=== PATIENT | female | born 1975 | race Caucasian/White ===

== ENCOUNTER 2021-06-18 16:15 | Observation (INO) ==
[2021-06-18] MEDS ORDERED: 0.9 % Sodium Chloride 1,000 ML IVC ONE (16:31)
[2021-06-18 17:00] LABS: Basophils # 0.1 K/mcL (0.0-0.2); Basophils % 0.2 %; Eosinophils % 0.2 %; Hematocrit 40.4 % (35.3-44.9); Hemoglobin 13.2 g/dL (11.5-15.4); Immature Granulocytes % 0.6 % (0-4); Lymphocytes # 1.2 K/mcL (0.6-4.6); Lymphocytes % 5.5 %; Mean Corpuscular HGB Conc 32.7 g/dL (31.6-35.5); Mean Corpuscular Hemoglobin 32.8 pg (28.0-33.3); Mean Corpuscular Volume 100.2 fL (83.0-100.0); Mean Platelet Volume 9.7 fL (9.4-12.4); Monocytes # 0.8 K/mcL (0.0-1.3); Monocytes % 3.4 %; Neutrophils # 19.9 K/mcL (1.6-8.9); Platelet Count 208 K/mcL (140-400); Red Blood Count 4.03 M/mcL (3.82-4.97); Red Cell Distribution Width 14.8 % (11.5-14.5); Segmented Neutrophils % 90.1 %; White Blood Count 22.1 K/mcL (4.3-11.1)
[2021-06-18 17:20] LABS: Acetaminophen < 10 mcg/mL (10-20); Alanine Aminotransferase 8 Units/L (7-52); Albumin 4.5 g/dL (3.5-5.7); Albumin/Globulin Ratio 1.7 (1.1-2.2); Alkaline Phosphatase 69 Units/L (34-104); Aspartate Amino Transferase 19 Units/L (13-39); BUN/Creatinine Ratio 14 (6-26); Bilirubin,Indirect 0.3 mg/dL (0.0-1.0); Bilirubin,Total 0.3 mg/dL (0.3-1.0); Blood Urea Nitrogen 18 mg/dL (6-20); Calcium 9.2 mg/dL (8.6-10.3); Carbon Dioxide 27 mEq/L (23-29); Chloride 106 mEq/L (98-107); Ethanol < 10 mg/dL (Less than 10); Globulin 2.6 g/dL (2.4-3.5); Glucose 141 mg/dL (70-105); Osmolality,Calculated 294 (280-300); Potassium 4.3 mEq/L (3.5-5.1); Salicylate < 2.5 mg/dL (15.0-30.0); Sodium 140 mEq/L (136-145); Total Protein 7.1 g/dL (6.4-8.9); eGFR For African Americans 53 (> 60); eGFR For Non-African Americans 44 (> 60)
[2021-06-18 18:27] LABS: Bacteria,Urine Few per hpf (None-Few); Bilirubin,Urine Negative (Negative); Blood,Urine Negative (Negative); Clarity,Urine Clear (Clear); Color,Urine Light-Yellow (Yellow); Glucose,Urine (UA) 300 mg/dL (Normal); Ketones,Urine Negative (Negative); Leukocyte Esterase,Urine Negative (Negative); Nitrite,Urine Negative (Negative); Protein,Urine Negative (Neg-Trace); Specific Gravity,Urine 1.021 (1.010-1.025); Squamous Epithelial Cell,Urine Few per hpf (None-Few); Urobilinogen,Urine Normal (Normal)
[2021-06-18 18:44] LABS: Amphetamine Screen,Urine Negative ng/mL (Cutoff=1000); Barbiturate Screen,Urine Negative ng/mL (Cutoff=200); Benzodiazepines Screen,Urine Positive ng/mL (Cutoff=200); Cannabinoid Screen,Urine Positive ng/mL (Cutoff = 50); Cocaine Screen,Urine Negative ng/mL (Cutoff= 300); Opiate Screen,Urine Positive ng/mL (Cutoff=300); Phencyclidine Screen,Urine Negative ng/mL (Cutoff=25)
[2021-06-18] MEDS ORDERED: Isovue-370 500 ML BOTTLE IVP ONE (18:48)
[2021-06-18] MEDS ORDERED: Azithromycin 500 MG in 0.9 % Sodium Chloride 250 ML IVPB ONE (23:30)
[2021-06-18 23:55] LABS: ABG Base Excess -1 mEq/L (-2 to 3); ABG HCO3 24 mEq/L (21-27); ABG Oxygen Saturation 80 % (95-98); ABG PCO2 39 mmHg (35-45); ABG PO2 44 mmHg (85-104); ABG TCO2 25 mEq/L (20-26)
[2021-06-19 00:04] LABS: ABG Base Excess 0 mEq/L (-2 to 3); ABG HCO3 24 mEq/L (21-27); ABG Oxygen Saturation 80 % (95-98); ABG PCO2 38 mmHg (35-45); ABG PH 7.41 pH Units (7.32-7.45); ABG PO2 44 mmHg (85-104); ABG TCO2 25 mEq/L (20-26)
[2021-06-19 00:19] LABS: Influenza A PCR Negative (Negative); Influenza B PCR Negative (Negative); Resp. Syncytial Virus PCR Negative (Negative); SARS-CoV-2 by PCR (In House) Negative (Negative)
[2021-06-19] MEDS ORDERED: *HR* HYDROcodone/Acet 5/325 mg TABLET PO PRN (00:29)
[2021-06-19] MEDS ORDERED: Acetaminophen 325 MG TABLET PO PRN (00:29)
[2021-06-19] MEDS ORDERED: Ondansetron 4 MG/2 ML VIAL IVP PRN (00:29)
[2021-06-19] MEDS ORDERED: Melatonin 3 MG TABLET PO PRN (00:29)
[2021-06-19] MEDS ORDERED: Naloxone 0.4 MG/ML INJ IVP PRN (00:29)
[2021-06-19] MEDS ORDERED: Nicotine 2 MG GUM BC PRN (01:46)
[2021-06-19] MEDS: 0.9 % Sodium Chloride 1,000 ML IVC SCH ×2 (02:23→17:18)
[2021-06-19] MEDS ORDERED: Dextrose Gel 15 GM/37.5 ML TUBE PO PRN ×2 (02:32)
[2021-06-19] MEDS ORDERED: D5% in Water 1,000 ML IVC PRN (02:32)
[2021-06-19] MEDS ORDERED: *HR* Dextrose 50 % in Water (Syg) 50 ML SYRINGE IVP PRN (02:32)
[2021-06-19] MEDS: Ampicillin/Sulbactam 3,000 MG in 0.9 % Sodium Chloride Mini Bag 100 ML IVPB SCH ×4 (02:46→21:06)
[2021-06-19 03:07] LABS: Basophils % 0.3 %; Eosinophils % 0.2 %; Hematocrit 33.6 % (35.3-44.9); Immature Granulocytes % 0.3 % (0-4); Lymphocytes # 1.7 K/mcL (0.6-4.6); Lymphocytes % 12.5 %; Mean Corpuscular HGB Conc 32.7 g/dL (31.6-35.5); Mean Corpuscular Hemoglobin 32.5 pg (28.0-33.3); Mean Corpuscular Volume 99.4 fL (83.0-100.0); Mean Platelet Volume 9.7 fL (9.4-12.4); Monocytes # 0.7 K/mcL (0.0-1.3); Monocytes % 5.1 %; Neutrophils # 10.8 K/mcL (1.6-8.9); Platelet Count 179 K/mcL (140-400); Red Blood Count 3.38 M/mcL (3.82-4.97); Red Cell Distribution Width 14.6 % (11.5-14.5); Segmented Neutrophils % 81.6 %; White Blood Count 13.2 K/mcL (4.3-11.1)
[2021-06-19 03:14] LABS: INR 1.1; Prothrombin Time 12.6 Seconds (9.4-12.1)
[2021-06-19] MEDS: *HR* OxyCODONE/APAP 5/325 TABLET PO PRN ×3 (03:15→17:15)
[2021-06-19 03:25] LABS: Alanine Aminotransferase 7 Units/L (7-52); Albumin 3.8 g/dL (3.5-5.7); Albumin/Globulin Ratio 1.6 (1.1-2.2); Alkaline Phosphatase 54 Units/L (34-104); Aspartate Amino Transferase 16 Units/L (13-39); BUN/Creatinine Ratio 18 (6-26); Bilirubin,Total 0.6 mg/dL (0.3-1.0); Blood Urea Nitrogen 14 mg/dL (6-20); Calcium 8.5 mg/dL (8.6-10.3); Carbon Dioxide 24 mEq/L (23-29); Chloride 107 mEq/L (98-107); Globulin 2.4 g/dL (2.4-3.5); Glucose 98 mg/dL (70-105); Magnesium 1.7 mg/dL (1.6-2.6); Osmolality,Calculated 284 (280-300); Phosphorous 2.9 mg/dL (2.7-4.5); Potassium 3.9 mEq/L (3.5-5.1); Sodium 137 mEq/L (136-145); Total Protein 6.2 g/dL (6.4-8.9); eGFR For African Americans > 60 (> 60); eGFR For Non-African Americans > 60 (> 60)
[2021-06-19] MEDS: Ipratropium/Albuterol Neb 3 ML IH SCH ×4 (03:25→20:12)
[2021-06-19] MEDS: Budesonide/Formoterol 80/4.5 1 PUFF INH IH SCH ×2 (08:09→20:12)
[2021-06-19] MEDS: Lactobacillus 1 EACH CAP.SPRINK PO SCH ×2 (09:02→21:05)
[2021-06-19] MEDS: Chlorhexidine Rinse 15 ML MOUTHWASH MM SCH ×2 (09:03→21:05)
[2021-06-19] MEDS: Nicotine 14 MG PATCH.TD24 TD SCH (09:04)
[2021-06-20] MEDS: *HR* OxyCODONE/APAP 5/325 TABLET PO PRN ×2 (00:43→06:47)
[2021-06-20 01:05] LABS: Basophils # 0.1 K/mcL (0.0-0.2); Basophils % 0.7 %; Eosinophils # 0.2 K/mcL (0.0-0.6); Eosinophils % 2.6 %; Hematocrit 30.6 % (35.3-44.9); Immature Granulocytes % 0.1 % (0-4); Lymphocytes # 2.7 K/mcL (0.6-4.6); Lymphocytes % 37.8 %; Mean Corpuscular HGB Conc 32.7 g/dL (31.6-35.5); Mean Corpuscular Hemoglobin 32.5 pg (28.0-33.3); Mean Corpuscular Volume 99.4 fL (83.0-100.0); Mean Platelet Volume 9.9 fL (9.4-12.4); Monocytes # 0.5 K/mcL (0.0-1.3); Monocytes % 6.9 %; Neutrophils # 3.8 K/mcL (1.6-8.9); Platelet Count 154 K/mcL (140-400); Red Blood Count 3.08 M/mcL (3.82-4.97); Red Cell Distribution Width 14.6 % (11.5-14.5); Segmented Neutrophils % 51.9 %; White Blood Count 7.3 K/mcL (4.3-11.1)
[2021-06-20 01:19] LABS: % Iron Saturation 8 % (15-50); BUN/Creatinine Ratio 9 (6-26); Blood Urea Nitrogen 7 mg/dL (6-20); Calcium 8.8 mg/dL (8.6-10.3); Carbon Dioxide 26 mEq/L (23-29); Chloride 110 mEq/L (98-107); Glucose 112 mg/dL (70-105); Iron 22 mcg/dL (50-170); Magnesium 1.8 mg/dL (1.6-2.6); Osmolality,Calculated 291 (280-300); Phosphorous 2.9 mg/dL (2.7-4.5); Potassium 3.7 mEq/L (3.5-5.1); Sodium 141 mEq/L (136-145); Transferrin 205 mg/dL (203-362); eGFR For African Americans > 60 (> 60); eGFR For Non-African Americans > 60 (> 60)
[2021-06-20 01:37] LABS: Ferritin 52 ng/mL (10-120)
[2021-06-20 01:42] LABS: Folate 8.2 ng/mL (3.0-16.0)
[2021-06-20] MEDS: Ampicillin/Sulbactam 3,000 MG in 0.9 % Sodium Chloride Mini Bag 100 ML IVPB SCH ×2 (03:37→09:44)
[2021-06-20] MEDS: Ipratropium/Albuterol Neb 3 ML IH SCH ×2 (04:00→07:44)
[2021-06-20 07:07] VITALS: BP 135/83; TEMP 98.1
[2021-06-20 07:08] VITALS: PULSE 77
[2021-06-20] MEDS: Budesonide/Formoterol 80/4.5 1 PUFF INH IH SCH (07:44)
[2021-06-20] MEDS ORDERED: ALPRAZolam 0.5 MG TABLET PO PRN (07:55)
[2021-06-20] MEDS ORDERED: Cyanocobalamin (B-12) 1,000 MCG/ML VIAL SQ ONE (07:55)
[2021-06-20] MEDS ORDERED: Gabapentin 300 MG CAPSULE PO SCH (09:00)
[2021-06-20] MEDS ORDERED: Azithromycin 250 MG TABLET PO SCH (09:00)
[2021-06-20] MEDS: Chlorhexidine Rinse 15 ML MOUTHWASH MM SCH (09:46)
[2021-06-20] MEDS: Lactobacillus 1 EACH CAP.SPRINK PO SCH (09:47)
[2021-06-20] MEDS: Nicotine 14 MG PATCH.TD24 TD SCH (09:52)
[2021-06-20 13:44] VITALS: O2SAT 95
== END 2021-06-20 12:05 | disposition home or self-care (01) ==
LOC: SUATTDRO → EMEROOARM 16:15 → 3NENU 16:15 → SUATTDRO 06-19 00:21 → 3NENU 06-19 01:18
PROVIDERS: ADMIT Internal Medicine; ATTEND Internal Medicine